=== PATIENT | female | born 1940 | race Caucasian/White ===

== ENCOUNTER 2021-01-26 18:40 | Emergency (ER) | payer OTHER ==
[~2021-01-26] VITALS: Ht 152.4 cm; Wt 68.0 kg
[~2021-01-26 18:40] MED LIST: ALTACE10 MG; ATORVASTATIN CA10 MG; IBUPROFEN800 MG PO; MEDROL4 MG PO; METFORMIN HCL500 MG
[2021-01-26] MEDS ORDERED: SYNTHROID100 MCG (19:03)
[2021-01-26] MEDS ORDERED: AMLODIPINE (19:03)
[2021-01-26] MEDS ORDERED: ORPHENADRINE C100 MG PO (21:36)
[2021-01-26] MEDS ORDERED: MOTION RELIEF25 MG PO (21:36)
[2021-01-26] MEDS ORDERED: KETO10TA2 PO (21:36)
== END 2021-01-26 22:57 | disposition home or self-care (01) ==
LOC: ER 18:40
DX: R42 Dizziness and giddiness (principal); R51.9 Headache, unspecified; M54.2 Cervicalgia

== ENCOUNTER 2021-02-16 15:45 | Outpatient (CLI) | payer OTHER ==
[~2021-02-16 15:45] MED LIST changes: +AMLODIPINE; +KETO10TA2 PO; +MOTION RELIEF25 MG PO; +ORPHENADRINE C100 MG PO; +SYNTHROID100 MCG
== END 2021-02-16 15:49 | disposition home or self-care (01) ==
LOC: LAB 15:45
PROVIDERS: ATTEND Internal Medicine Geriatric Medicine
DX: N39.0 Urinary tract infection, site not specified (principal)